=== PATIENT | male | born 1945 | race Caucasian/White ===

== ENCOUNTER 2017-04-18 18:48 | Inpatient (IN) | payer MEDICARE ==
[~2017-04-18 18:48] MED LIST: ISOVUE-370 76%-LOCM 1 ML ONE
[2017-04-18] MEDS ORDERED: Nitroglycerin 2% Ointment 1 INCH/1 GM Packet ONE (19:24)
[2017-04-18 19:28] LABS: #Eosinphils 0.2 thou/uL (0.0-0.7); #Monocytes 0.6 thou/uL (0.11-0.59); #Neutrophils 3.2 thou/uL (1.40-6.50); %Basophils 0.5 % (0.0-1.0); %Eosinophils 2.5 % (0.0-10.0); %Lymphocytes 42.7 % (21.0-51.0); %Monocytes 8.8 % (0.0-10.0); Hematocrit 42.7 % (42.0-52.0); Mean Platelet Volume 7.5 fL (7.4-10.4); Red Blood Cell (RBC) Count 4.61 mill/uL (4.70-6.10); White Blood Cell (WBC) Count 7.1 thou/uL (4.8-10.8)
[2017-04-18 19:36] LABS: PTT 27.5 SEC (22.9-36.1); Prothrombin Time 13.9 SEC (12.0-14.7)
[2017-04-18 19:52] LABS: ALT (SGPT) 28 U/L (8-55); AST (SGOT) 20 U/L (5-34); Alkaline Phosphatase 102 U/L (40-150); Anion Gap 18 mmol/L (10-20); BUN (Urea Nitrogen) 25 mg/dL (8.4-25.7); Bilirubin, Total 0.5 mg/dL (0.2-1.2); CK (CPK) 57 U/L (30-200); Calc. Creatinine Clearance 0 mL/min (70-130); Calcium 10.2 mg/dL (7.8-10.44); Carbon Dioxide 26 mmol/L (23-31); Chloride 100 mmol/L (98-107); Estimated GFR-MDRD 35; Globulin 3.6 g/dL (2.4-3.5); Lipase 41 U/L (8-78)
[2017-04-18 19:56] LABS: Troponin I Less than 0.010 ng/mL (< 0.028)
--- NOTE | 2017-04-18 21:02 | RAD ---
FRONTAL VIEW CHEST: Comparison: 06-23-16 History: Chest pain. FINDINGS: Chest is similar appearing to 06-23-16 with hyperinflated lungs and prominent sized cardiac silhouette . No new consolidation. IMPRESSION: Stable chest. POS: [facility]
--- NOTE | 2017-04-18 22:11 | CT ---
CT CHEST CT ABDOMEN AND PELVIS CTA AORTOGRAM WITH 3D RENDERING: Clinical history: Chest pain. Ascending aneurysm. FINDINGS: There is mild aneurysmal dilatation of the ascending aorta at 4.8 cm. Scattered atherosclerotic vascu lar disease is present. There is no aortic dissection or periaortic hematoma. Prominent volume of the pulmonary arteries may relate to pulmonary artery hypertension. There is scattered patchy opacificat ion of the pulmonary parenchyma bilaterally which may be on the basis of volume loss. There is focal attenuation of the aspect of the left kidney, likely chronic area of renal parenchyma. Scattered osse ous degenerative change. There is a sclerotic density within the lower thoracic spine vertebral body indicating a bone island. IMPRESSION: 1. Mild ascending thoracic aortic aneurysm. 2. No evidence of acute aortic dissection or periaortic hematoma. 3. Prominent volume of pulmonary arterial system which can be seen in setting of pulmonary artery hyp ertension. Correlate clinically. POS: [facility]
[2017-04-18 22:46] LABS: Troponin I 0.065 ng/mL (< 0.028)
[2017-04-18] MEDS ORDERED: Ondansetron ODT 4 MG TAB SL PRN (23:44)
[2017-04-18] MEDS ORDERED: Ondansetron HCl/PF 4 MG/2 ML Vial IVP PRN (23:44)
[2017-04-18] MEDS ORDERED: Acetaminophen 325 MG TAB PO PRN (23:44)
[2017-04-19 00:19] VITALS: BMI 31.1
[2017-04-19 01:38] LABS: Troponin I 0.411 ng/mL (< 0.028)
[2017-04-19] MEDS ORDERED: Iopamidol 370 76% 100 ML VIAL ONE (01:38)
[2017-04-19] MEDS ORDERED: Nitroglycerin 0.4 MG TAB (25 Tab Bottle) SL PRN (02:32)
[2017-04-19] MEDS ORDERED: Enoxaparin Sodium 120 MG/0.8 ML SYRINGE SC SCH (02:45)
[2017-04-19 02:55] LABS: Anion Gap 13 mmol/L (10-20); BUN (Urea Nitrogen) 23 mg/dL (8.4-25.7); Calc. Creatinine Clearance 62 mL/min (70-130); Calcium 9.8 mg/dL (7.8-10.44); Carbon Dioxide 29 mmol/L (23-31); Chloride 100 mmol/L (98-107); Estimated GFR-MDRD 43
[2017-04-19 05:45] LABS: Troponin I 0.934 ng/mL (< 0.028)
[2017-04-19 07:59] LABS: Troponin I 1.044 ng/mL (< 0.028)
[2017-04-19] MEDS ORDERED: Diazepam 5 MG TAB PO SCH (08:45)
[2017-04-19] MEDS ORDERED: Amlodipine 10 MG TAB PO SCH (09:00)
[2017-04-19] MEDS ORDERED: Chlorthalidone 25 MG TAB PO SCH (09:00)
[2017-04-19] MEDS ORDERED: Alogliptin 25 MG TAB PO SCH (09:00)
[2017-04-19] MEDS ORDERED: Enoxaparin Sodium 100 MG/ML SYRINGE SC SCH (09:00)
--- NOTE | 2017-04-19 09:09 | HP ---
ADMITTING PHYSICIAN: Michael Swan M.D. HISTORY OF PRESENT ILLNESS: The patient is a 72-year-old male with known history of type 2 diabetes mellitus who presented with chest pain approximately 3 hours prior to coming to the hospital. He w as having pain across his chest, it was a pressure-like, noticed some shortness of breath. He has n o prior history of atherosclerotic coronary artery disease. He has seen Dr. Jan Hutchinson in th e past for palpitations. He has no prior history of atherosclerotic coronary artery disease. He does have risk factors of type 2 diabetes mellitus and hypercholesterolemia. Otherwise, at this time he reports the chest pain is gone. He has not noted any fever, nausea, vomi ting, diarrhea. ALLERGIES: DEMEROL. CURRENT MEDICATIONS: Nesina 25 mg daily, amlodipine 10 mg daily, chlorthalidone 25 mg daily, metopr olol 100 mg b.i.d. PAST MEDICAL HISTORY: Type 2 diabetes mellitus, hypertension, and hypercholesterolemia. PAST SURGICAL HISTORY: Positive for skin cancer removal, back surgery, urethral stricture surgery. SOCIAL/PERSONAL HISTORY: He is . He does not smoke nor does he drink alcohol. REVIEW OF SYSTEMS: GASTROINTESTINAL: Negative. GENITOURINARY: Negative. CARDIOVASCULAR: Positive as above. PHYSICAL EXAMINATION: VITAL SIGNS: Temperature 97.9, pulse 63, respirations 18, O2 sats 95, BP 118/68. GENERAL: He is alert, active, in no distress. HEENT: Unremarkable. NECK: Supple, full range of motion, no masses. There are no carotid bruits. LUNGS: Clear. HEART: The heart reveals no murmurs. ABDOMEN: Soft, nontender, bowel sounds are active. No hepatosplenomegaly is noted. There is no ev idence of rebound or guarding. EXTREMITIES: No clubbing, edema or cyanosis. NEUROLOGIC: He is alert and oriented x3. Cranial nerves II-XII are intact. Motor power strength t esting normal throughout upper and lower extremities. LABORATORY: His hemoglobin is 14.3, hematocrit 42.7. Sodium 138, potassium 4.1, chloride 100, CO2 29, creatinine 1.57, glucose 149. Serial troponins have steadily risen since admission from 0.01 no w to 0.9. He professes no chest pain. CT segment dissection protocol was performed which was adrian l. IMPRESSION: Appears that he had an acute myocardial infarction. PLAN: I have discussed the findings with the patient. I did not feel comfortable ordering a stress test. I have spoken with Cardiology. Most likely he will be going to [facility] today. Further input and recommendations will be made by the Cardiology Service. I have spoken with the patient. He verbalized understanding of possible catheterization. We will continue current medications.
[2017-04-19] MEDS: Metoprolol Tartrate 100 MG TAB PO SCH ×2 (09:16→20:05)
[2017-04-19] MEDS: Sodium Chloride 0.9% 1,000 ML IV SCH ×2 (09:22→19:15)
--- NOTE | 2017-04-19 10:00 | CON ---
DATE OF CONSULTATION: 04/19/2017 REASON FOR CONSULTATION: Elevated troponin and chest pain. REFERRING PROVIDER: Dr. Michael Swan. HISTORY OF PRESENT ILLNESS: Mr. Newsome is a pleasant 72-year-old gentleman; I have seen him in the past. He states he had acute onset chest pain at 4:00 p.m. yesterday. It lasted for 1-2 hours. Celeste velez was concerned about his discomfort and proceeded to the emergency room. He was subsequently admit edie. His initial troponin was negative. His subsequent troponin increased to 1.2. He is currently pain free. PAST MEDICAL HISTORY: Diabetes mellitus, hypertension, hyperlipidemia. CURRENT MEDICATIONS: Nesina, amlodipine, chlorthalidone, and metoprolol. ALLERGIES: DEMEROL. PAST SURGICAL HISTORY: Back surgery, urethral stricture surgery. SOCIAL HISTORY: He is currently . No current tobacco or alcohol use. REVIEW OF SYSTEMS: Ten-point review of systems is reviewed and as above negative. PHYSICAL EXAMINATION: GENERAL: Patient is a pleasant male who is in no acute distress. The patient appears his stated ag e. VITAL SIGNS: Blood pressure 163/77, pulse 79, temperature 97.4. NEUROLOGIC: The patient is alert and oriented times 3 with no focal neurologic deficits. HEENT: Sclerae without icterus. Mouth has moist mucous membranes with normal pallor. NECK: No JVD. Carotid upstroke brisk. No bruits bilaterally. LUNGS: Clear to auscultation with unlabored respirations. BACK: No scoliosis or kyphosis. CARDIAC: Regular rate and rhythm with normal S1 and S2. No S3 or S4 noted. No significant rubs, m urmurs, thrills, or gallops noted throughout the precordium. PMI is not displaced. There is no par asternal heave. ABDOMEN: Soft, nontender, nondistended. No peritoneal signs present. No hepatosplenomegaly. No a bnormal striae. EXTREMITIES: A 2+ femoral and 2+ dorsalis pedis pulses. No cyanosis, clubbing, or edema. SKIN: No gross abnormalities. PERTINENT LABORATORY DATA: Hemoglobin 14.3, creatinine 1.57 with a creatinine clearance of 62. Pea k troponin 1.044. IMPRESSION: 1. Unstable angina. 2. Diabetes mellitus. 3. Hypertension. 4. Hyperlipidemia. RECOMMENDATIONS: I discussed several options with Mr. Newsome. I discussed conservative therapy ve rsus angiography. He would certainly benefit from angiography given his elevated troponin and risk factors. I discussed coronary angiography in full detail. The risks include but are not limited to the following: , stroke, NE, need for emergency surgery, loss of limb, bleeding, and infectio n, as well as a reaction to the dye causing kidney failure and needing long-term dialysis. I also d iscussed the risks of PCI to include all of the above including coronary dissection and perforation in addition to acute stent thrombosis and restenosis. All questions about the procedure were answer ed. Given the above, the patient agreed to proceed with coronary angiography and possible PCI. All questions were answered. I also discussed drug-coated versus nondrug-coated stent placement. He d oes have intermittent back injections and would prefer bare metal stent. We will proceed if needed. Further recommendations will depend on the above.
[2017-04-19] MEDS ORDERED: Midazolam HCl 2 mg/2 ml Vial ONE (12:13)
[2017-04-19] MEDS ORDERED: Fentanyl 100 MCG/2 ML VIAL ONE (12:13)
[2017-04-19] MEDS ORDERED: Nitroglycerin 100MG/250ML BOT 250 ML ONE (12:17)
[2017-04-19] MEDS ORDERED: Heparin 10,000 UNITS/1 ML VIAL ONE (12:17)
[2017-04-19] MEDS ORDERED: Verapamil 5 MG/2 ML VIAL ONE (12:17)
[2017-04-19 20:04] VITALS: BP 140/68; TEMP 98.8
--- NOTE | 2017-04-20 13:48 | DIS ---
DATE OF ADMISSION: 04/18/2017 DATE OF DISCHARGE: 04/19/2017 DISCHARGE DIAGNOSES: 1. Atherosclerotic coronary artery disease. 2. History of thoracic aneurysm. ADMITTING PHYSICIAN: Dr. Michael Swan. HOSPITAL SUMMARY: The patient is a 72-year-old male who presented to the emergency room complaining of chest pain and discomfort. Cardiac consultation was obtained from Dr. Hutchinson. He underwent ca rdiac catheterization, which revealed severe multivessel disease with thoracic aneurysm. Due to his multivessel disease and thoracic aneurysm, CV Surgery consult was obtained with Dr. Laws and it was felt like his best course of action was to transfer the patient to [place] for further care. The pat ient was eventually transferred to [place] the next day for further care to be done in [place].
--- NOTE | 2017-04-25 16:07 | PQF ---
JEREMIAH RAGSDALE RICHARD A MD [id number] [facility]-[id number] CLINICAL DOCUMENTATION CLARIFICATION FORM: POST DISCHARGE Please clarify if Acute Myocardial Infarction can be further specified or ruled-out. H&P IMPRESSION: "Appears that he had an acute myocardial infarction." "Serial troponins have steadily risen since admission from 0.01 now to 0.9." CARDIO CONSLT: "Unstable angina". "His initial troponin was negative. His subsequent troponin increased to 1.2." "Peak troponin 1.044". CATH REPORT: Clinical evaluation Leading to Procedure: "The patients CAD presentation was assessed as Non-STEMI". Procedure Summary: "Severe multivessel disease, Thoracic aneurysm present, Given the heavy calcium and likely need for stent to the proximal LAD and potential jailing of diagonal branch, recommend CABG." LAB: Troponin I- (04/18) less than 0.010 / (04-19) 1.044 / (04/19) 0.934 Please exercise your independent, professional judgment in responding to the clarification form. Clinical indicators are provided on the bottom of this form for your review. Thank you. Please check appropriate box(s): AMI TYPE [ ] Acute Coronary Syndrome (ACS) without Acute IA meaning Unstable Angina [ ] NSTEMI [ ] AMI Type II [ ] STEMI (please also specify site and artery see below) If STEMI, SITE: [ ] Anterior [ ] Apical [ ] Lateral [ ] Inferior [ ] Posterior [ ] Q Wave [ ] Septal [ ] Unable to Determine SPECIFIC ARTERY (Based on site) [ ] Left Main Coronary [ ] Diagonal [ ] Left Anterior Descending [ ] Oblique Marginal [ ] Right Coronary Artery [ ] Unable to Determine [ ] Left Circumflex ONSET OF INFARCTION: [ ] Onset Less than 4 weeks of admission [ ] Onset Greater than 4 weeks of admission [ ] Unable to determine DUE TO (if applicable): [ ] Stent occlusion [ ] In-Stent stenosis [ ] Occlusion of coronary bypass graft [ ] Complication of PCI [ ] Underlying CAD [ ] Other [ ] Other diagnosis [ ] Unable to determine [ ] Myocardial Infarction Ruled out In addition, please specify: Present on Admission (POA): [ ] Yes [ ] No [ ] Unable to determine CLINICAL INDICATORS - SIGNS / SYMPTOMS / LABS Elevated biomarkers (CK-MB, Troponin T or I) EKG changes (ST Elevation, Non ST Elevation, Q waves, new LBB) Abnormal Echocardiogram Crushing, pressure like chest pain Nausea, vomiting, diaphoresis RISKS: Hypertension History of Coronary Artery Disease High Cholesterol/Lipids History of Diabetes History of IA TREATMENTS: Heart cath / percutaneous intervention Anticoagulation / TPA Nitroglycerin Oxygen Vasodilators Continuous cardiac monitoring Cardiac consult (This form is maintained as a part of the permanent medical record) 2014 [employer]. All Rights Reserved [email or web address] [phone] MTDD
--- NOTE | 2017-04-27 21:45 | EKG ---
Test Reason : Blood Pressure : / mmHG Vent. Rate : 066 BPM Atrial Rate : 066 BPM P-R Int : 178 ms QRS Dur : 162 ms QT Int : 420 ms P-R-T Axes : 063 -12 -06 degrees QTc Int : 440 ms Normal sinus rhythm Right bundle branch block Cannot rule out Inferior infarct (cited on or before 18-APR-2017) T wave abnormality, consider lateral ischemia Abnormal ECG When compared with ECG of 18-APR-2017 19:05, (Unconfirmed) Premature ventricular complexes are no longer Present QRS duration has increased T wave inversion now evident in Lateral leads Confirmed by IVA MARK (2) on 04/27/2017 9:44:48 PM Referred By: NICOL Confirmed By:IVA MARK
--- NOTE | 2017-06-04 15:58 | EKG ---
Test Reason : Blood Pressure : / mmHG Vent. Rate : 096 BPM Atrial Rate : 096 BPM P-R Int : 180 ms QRS Dur : 124 ms QT Int : 370 ms P-R-T Axes : 030 011 -14 degrees QTc Int : 467 ms Sinus rhythm with frequent Premature ventricular complexes Right bundle branch block Inferior infarct , age undetermined Abnormal ECG No changes 23-APR-2017 Confirmed by ZORAIDA LEARY, NASIR ([id number]), copy editor JAKY BYRNE ([id number]) on 06/04/2017 3:58:23 PM Referred By: Confirmed By:NASIR CONWAY MD
== END 2017-04-19 20:18 | disposition short-term general hospital (02) | DRG 287 ==
LOC: ERS 18:48 → OBSVTOIN 22:00 → 2SW 22:00
PROVIDERS: ADMIT Family Medicine; ATTEND Family Medicine
PROC: B2111ZZ Fluoroscopy of Multiple Coronary Arteries using Low Osmolar Contrast (ICD-10-PCS; principal; 2017-04-19)
DX: I25.110 Atherosclerotic heart disease of native coronary artery with unstable angina pectoris (principal); I71.2 Thoracic aortic aneurysm, without rupture; E11.9 Type 2 diabetes mellitus without complications; R74.8 Abnormal levels of other serum enzymes; I10 Essential (primary) hypertension; E78.00 Pure hypercholesterolemia, unspecified
CPT/HCPCS: 36415; 36416; 71010; 71275; 80048; 80053; 82553; 83690; 84484; 85025; 85610; 85730; 93005; 93010; 93306; 93454; 96360; 99152; A4216; C1769; J1644; J1650; J2250; J3010

== ENCOUNTER 2017-08-09 16:57 | Emergency (ER) | payer MEDICARE | END 2017-08-09 20:15 | disposition home or self-care (01) | LOC: ERS 16:57 | DX: L92.9 Granulomatous disorder of the skin and subcutaneous tissue, unspecified (principal); E11.9 Type 2 diabetes mellitus without complications; I10 Essential (primary) hypertension; I25.2 Old myocardial infarction; Z79.84 Long term (current) use of oral hypoglycemic drugs; Z79.899 Other long term (current) drug therapy | CPT/HCPCS: 99283 ==

== ENCOUNTER 2017-08-10 22:24 | Emergency (ER) | payer MEDICARE ==
--- NOTE | 2017-08-10 22:50 | RAD ---
CHEST ONE VIEW: 08/10/17 HISTORY: Dyspnea. COMPARISON: 04/18/17. FINDINGS: Cardiac silhouette is magnified by projection. Shallow inspiration accentuates pulmonary markings. Me diastinum is midline with postoperative changes. No lobar consolidation or evidence of pneumothorax. IMPRESSION: No active cardiopulmonary abnormalities are demonstrated. POS: [facility]
[2017-08-10 23:11] LABS: #Eosinphils 0.2 thou/uL (0.0-0.7); #Lymphocytes 2.3 thou/uL (1.20-3.40); #Monocytes 0.5 thou/uL (0.11-0.59); #Neutrophils 2.2 thou/uL (1.40-6.50); %Basophils 0.3 % (0.0-1.0); %Eosinophils 3.8 % (0.0-10.0); %Lymphocytes 43.4 % (21.0-51.0); %Monocytes 10.3 % (0.0-10.0); %Neutrophils 42.1 % (42.0-75.0); Mean Corpuscular HGB CONC 33.1 g/dL (32.0-36.0); Mean Corpuscular Volume 90.8 fl (80.0-94.0); Mean Platelet Volume 7.5 fL (7.4-10.4); Platelet Count 225 thou/uL (130-400); RBC Distribution Width 15.7 % (11.5-14.5); Red Blood Cell (RBC) Count 3.32 mill/uL (4.70-6.10); White Blood Cell (WBC) Count 5.3 thou/uL (4.8-10.8)
[2017-08-10 23:37] LABS: ALT (SGPT) 12 U/L (8-55); AST (SGOT) 13 U/L (5-34); Albumin 3.3 g/dL (3.4-4.8); Alkaline Phosphatase 89 U/L (40-150); Anion Gap 13 mmol/L (10-20); BUN (Urea Nitrogen) 16 mg/dL (8.4-25.7); Bilirubin, Total 0.2 mg/dL (0.2-1.2); Calc. Creatinine Clearance 0 mL/min (70-130); Calcium 9.1 mg/dL (7.8-10.44); Carbon Dioxide 27 mmol/L (23-31); Chloride 103 mmol/L (98-107); Estimated GFR-MDRD 59; Globulin 2.8 g/dL (2.4-3.5); Glucose 143 mg/dL (83-110); Protein, Total 6.1 g/dL (5.8-8.1); Sodium 139 mmol/L (136-145)
[2017-08-10 23:41] LABS: CKMB 1.1 ng/mL (0-6.6); Troponin I 0.017 ng/mL (< 0.028)
== END 2017-08-11 01:01 | disposition home or self-care (01) ==
LOC: ERS 22:24
DX: R06.00 Dyspnea, unspecified (principal); E11.9 Type 2 diabetes mellitus without complications; I10 Essential (primary) hypertension; Z79.84 Long term (current) use of oral hypoglycemic drugs; Z79.899 Other long term (current) drug therapy
CPT/HCPCS: 71045; 80053; 82553; 83605; 83880; 84484; 85025; 85379; 93005

== ENCOUNTER 2020-08-09 15:52 | Emergency (ER) | payer MEDICARE ==
--- NOTE | 2020-08-09 17:54 | RAD ---
Exam:4 views right knee HISTORY: Fall. Pain. COMPARISON: None FINDINGS: Small suprapatellar effusion. Moderate degenerative change in the medial compartment. Mild to moderate degenerative change patellofemoral compartment. No evidence of fracture. IMPRESSION: 1. No fracture. 2. Degenerative changes as above. There is a suprapatellar effusion. If there is concern for internal derangement, consider MRI
[2020-08-09] MEDS ORDERED: Acetaminophen 500 MG TAB ONE (19:16)
== END 2020-08-09 19:31 | disposition home or self-care (01) ==
LOC: ERS 15:52
DX: M25.561 Pain in right knee (principal); E11.9 Type 2 diabetes mellitus without complications; I10 Essential (primary) hypertension; Z79.4 Long term (current) use of insulin; Z79.899 Other long term (current) drug therapy; W18.30XA Fall on same level, unspecified, initial encounter

== ENCOUNTER 2021-10-13 10:11 | Observation (INO) | payer MEDICARE ==
[~2021-10-13 10:11] MED LIST changes: -ISOVUE-370 76%-LOCM 1 ML ONE; +Iopamidol-370 76% 500 ML 1 ML ONE
[2021-10-13 11:42] LABS: #Eosinphils 0.2 thou/uL (0.0-0.7); #Lymphocytes 1.9 thou/uL (1.20-3.40); #Monocytes 0.4 thou/uL (0.11-0.59); #Neutrophils 2.8 thou/uL (1.40-6.50); %Basophils 0.2 % (0.0-1.0); %Lymphocytes 35.3 % (21.0-51.0); %Monocytes 8.3 % (0.0-10.0); %Neutrophils 53.2 % (42.0-75.0); Hemoglobin 12.3 g/dL (14.0-18.0); Mean Corpuscular HGB CONC 31.9 g/dL (32.0-36.0); Mean Corpuscular Hemoglobin 29.3 pg (27.0-31.0); Mean Corpuscular Volume 91.9 fL (78.0-98.0); Mean Platelet Volume 8.2 fL (7.4-10.4); Platelet Count 200 thou/uL (130-400); RBC Distribution Width 12.9 % (11.5-14.5); White Blood Cell (WBC) Count 5.3 thou/uL (4.8-10.8)
[2021-10-13 12:03] LABS: ALT (SGPT) 8 U/L (8-55); AST (SGOT) 14 U/L (5-34); Albumin 3.8 g/dL (3.4-4.8); Alkaline Phosphatase 91 U/L (40-110); Anion Gap 16 mmol/L (10-20); BUN (Urea Nitrogen) 23 mg/dL (8.4-25.7); Bilirubin, Total 0.5 mg/dL (0.2-1.2); Calc. Creatinine Clearance 0 mL/min (70-130); Calcium 9.3 mg/dL (7.8-10.44); Carbon Dioxide 23 mmol/L (23-31); Chloride 106 mmol/L (98-107); Globulin 3.5 g/dL (2.4-3.5); Glucose 106 mg/dL (83-110); Potassium 4.5 mmol/L (3.5-5.1); Protein, Total 7.3 g/dL (5.8-8.1); Sodium 140 mmol/L (136-145)
[2021-10-13] MEDS ORDERED: hydrALAZINE 20 MG/ML VIAL SLOW IVP PRN (17:08)
[2021-10-13] MEDS ORDERED: Ondansetron ODT 4 MG TAB PO PRN (17:10)
[2021-10-13] MEDS ORDERED: Ondansetron PF 4 MG/2 ML Vial IVP PRN (17:10)
[2021-10-13] MEDS ORDERED: Acetaminophen 325 MG TAB PO PRN (17:10)
[2021-10-13] MEDS ORDERED: Nitroglycerin 0.4 MG TAB (25 Tab Bottle) SL PRN (17:12)
[2021-10-13 17:13] LABS: Troponin I Less than 0.010 ng/mL (< 0.028)
[2021-10-13] MEDS ORDERED: Electrolyte Replacement Protocol 1 EACH FS PRN (17:15)
[2021-10-13] MEDS ORDERED: Dextrose 5% in Water 1,000 ML IV PRN (17:20)
[2021-10-13] MEDS ORDERED: HumaLOG 300 UNITS/3 ML VIAL SC PRN ×2 (17:20)
[2021-10-13] MEDS ORDERED: Dextrose 50% Abboject 50 ML SYRINGE SLOW IVP PRN (17:20)
[2021-10-13 19:56] VITALS: BMI 28.8
[2021-10-13 20:35] LABS: Troponin I Less than 0.010 ng/mL (< 0.028)
[2021-10-13] MEDS: Doxycycline 100 MG CAP PO SCH (20:46)
[2021-10-13] MEDS ORDERED: Atorvastatin Calcium 40 MG TAB PO SCH (21:00)
[2021-10-14 00:25] LABS: SARS-CoV-2 PCR by NAA Not Detected (NotDetected)
[2021-10-14 00:26] LABS: Anion Gap 14 mmol/L (10-20); BUN (Urea Nitrogen) 26 mg/dL (8.4-25.7); Calc. Creatinine Clearance 58 mL/min (70-130); Calcium 9.3 mg/dL (7.8-10.44); Carbon Dioxide 25 mmol/L (23-31); Chloride 104 mmol/L (98-107); Glucose 159 mg/dL (83-110); Potassium 4.2 mmol/L (3.5-5.1); Sodium 139 mmol/L (136-145)
[2021-10-14 05:04] LABS: #Eosinphils 0.2 thou/uL (0.0-0.7); #Monocytes 0.6 thou/uL (0.11-0.59); #Neutrophils 3.2 thou/uL (1.40-6.50); %Basophils 0.1 % (0.0-1.0); %Eosinophils 3.5 % (0.0-10.0); %Lymphocytes 33.2 % (21.0-51.0); %Monocytes 9.5 % (0.0-10.0); %Neutrophils 53.7 % (42.0-75.0); Hemoglobin 11.9 g/dL (14.0-18.0); Mean Corpuscular HGB CONC 32.1 g/dL (32.0-36.0); Mean Corpuscular Hemoglobin 29.4 pg (27.0-31.0); Mean Corpuscular Volume 91.4 fL (78.0-98.0); Mean Platelet Volume 8.2 fL (7.4-10.4); Platelet Count 214 thou/uL (130-400); RBC Distribution Width 12.7 % (11.5-14.5); Red Blood Cell (RBC) Count 4.05 mill/uL (4.70-6.10)
[2021-10-14] MEDS ORDERED: Magnesium 2 GM/50 ML(in water) 2 GM in Premix Bag 1 BAG IVPB SCH (05:15)
[2021-10-14 05:29] LABS: Anion Gap 12 mmol/L (10-20); BUN (Urea Nitrogen) 24 mg/dL (8.4-25.7); Calc. Creatinine Clearance 65 mL/min (70-130); Calcium 9.2 mg/dL (7.8-10.44); Carbon Dioxide 25 mmol/L (23-31); Cardiac Risk 4.3 (Less than 4.5); Chloride 104 mmol/L (98-107); Cholesterol 138 mg/dl (< 200 Desired); Glucose 109 mg/dL (83-110); HDL Cholesterol 32 mg/dL (>60 Neg Risk); LDL Cholesterol, Calculated 86 mg/dL; Magnesium 1.9 mg/dL (1.6-2.6); Potassium 3.9 mmol/L (3.5-5.1); Sodium 137 mmol/L (136-145); Triglycerides 102 mg/dL (Less than 150)
[2021-10-14] MEDS ORDERED: Regadenoson 0.4 MG/5 ML SYRINGE ONE (08:43)
[2021-10-14] MEDS ORDERED: Amlodipine 10 MG TAB PO SCH (09:00)
[2021-10-14] MEDS ORDERED: Enoxaparin Sodium 40 MG/0.4 ML SYRINGE SC SCH (09:00)
[2021-10-14] MEDS: Doxycycline 100 MG CAP PO SCH (09:53)
[2021-10-14 15:29] VITALS: BP 172/77; TEMP 97.9
[2021-10-14] MEDS: Carvedilol 6.25 MG TAB PO SCH ×2 (15:41→16:39)
[2021-10-14] MEDS ORDERED: Pregabalin 75 MG CAP PO SCH (21:00)
[2021-10-14] MEDS ORDERED: Insulin Glargine 30 UNITS/0.3 ML VIAL SC SCH (21:00)
== END 2021-10-14 18:00 | disposition home or self-care (01) ==
LOC: ERS 10:11 → 2SW 15:41
PROVIDERS: ADMIT Internal Medicine; ATTEND Internal Medicine
DX: R07.89 Other chest pain (principal); I45.10 Unspecified right bundle-branch block; R79.89 Other specified abnormal findings of blood chemistry; E11.42 Type 2 diabetes mellitus with diabetic polyneuropathy; I12.9 Hypertensive chronic kidney disease with stage 1 through stage 4 chronic kidney disease, or unspecified chronic kidney disease; E11.22 Type 2 diabetes mellitus with diabetic chronic kidney disease; N18.30 Chronic kidney disease, stage 3 unspecified; D63.1 Anemia in chronic kidney disease; E11.621 Type 2 diabetes mellitus with foot ulcer; L97.529 Non-pressure chronic ulcer of other part of left foot with unspecified severity; E78.5 Hyperlipidemia, unspecified; I25.10 Atherosclerotic heart disease of native coronary artery without angina pectoris; I25.2 Old myocardial infarction; I48.0 Paroxysmal atrial fibrillation; Z79.2 Long term (current) use of antibiotics; Z79.4 Long term (current) use of insulin; Z79.899 Other long term (current) drug therapy; Z88.5 Allergy status to narcotic agent; Z95.1 Presence of aortocoronary bypass graft; Z20.822 Contact with and (suspected) exposure to COVID-19
CPT/HCPCS: 71045; 71275; 74174; 78452; 80048 ×2; 80053; 80061; 82962 ×2; 83036; 83735 ×2; 83880; 84443; 84484 ×2; 85025 ×2; 93005; 93017; 94760; 97139; 99285; A9500; U0003; U0005; 36415; 36416; 93010; 96372; 96374; G0378; J1650; J2785; J3475; Q9967